=== PATIENT | male | born 1965 | race Caucasian/White ===

== ENCOUNTER 2016-07-24 06:22 | Emergency (ER) | payer BC ==
--- NOTE | 2016-07-24 08:36 | RAD ---
LEFT ANKLE 3 VIEWS: HISTORY: Injury. COMPARISON: None. FINDINGS: There are moderate-sized plantar and dorsal calcaneal spurs. Ankle mortise is congruent. No acute fracture or malalignment. IMPRESSION: 1. No acute injury. 2. Mild edema. POS: [facility]
--- NOTE | 2016-07-24 09:51 | RAD ---
LEFT FOOT 3 VIEWS: HISTORY: Pain and swelling dorsal lateral mid foot. COMPARISON: None. FINDINGS: Lisfranc interval is maintained. No acute fracture or malalignment is appreciated. There is mild d orsal edema of the mid foot. Moderate-sized plantar and dorsal calcaneal spurs. No mid foot collapse. Mild degenerative disease of the great toe metatarsophalangeal joint. Very mild lateral subluxation of the sesamoids. IMPRESSION: Mild mid foot edema from contusion without acute fracture or malalignment. POS: [facility]
== END 2016-07-24 07:26 | disposition home or self-care (01) ==
LOC: MADERS 06:22
DX: S90.32XA Contusion of left foot, initial encounter (principal); W20.8XXA Other cause of strike by thrown, projected or falling object, initial encounter; Y92.69 Other specified industrial and construction area as the place of occurrence of the external cause; Y99.0 Civilian activity done for income or pay